=== PATIENT | male | born 1960 | race Caucasian/White ===

== ENCOUNTER 2019-04-29 11:59 | Emergency (ER) | payer BC, OTHER ==
[2019-04-29] MEDS ORDERED: MECLIZINE HCL 12.5 MG TAB ONE (12:28)
[2019-04-29] MEDS ORDERED: DIAZEPAM 10 MG/2 ML INJ SYRINGE ONE (12:28)
[2019-04-29] MEDS ORDERED: NA CHLORIDE 0.9% 1,000 ML ONE (12:29)
[2019-04-29 12:48] LABS: Absolute Lymphocytes (CBC) 0.7 K/uL (0.7-4.9); Basophils % 0.5 % (0-1.3); Hematocrit 42.5 % (39.6-49.0); Lymphocytes % 9.5 % (15.3-44.8); MPV 8.5 fL (7.6-11.3)
[2019-04-29 12:54] LABS: Protime INR 1.01
[2019-04-29 13:09] LABS: ALT/SGPT 38 U/L (12-78); AST/SGOT 22 U/L (15-37); Albumin 4.4 g/dL (3.4-5.0); Alkaline Phosphatase 73 U/L (45-117); BUN Blood Urea Nitrogen 19 mg/dL (7-18); Bicarbonate 24 mmol/L (21-32); Bilirubin Direct 0.2 mg/dL (0-0.2); Bilirubin Total 0.8 mg/dL (0.2-1.0); Glucose Level 219 mg/dL (74-106); Magnesium 1.9 mg/dL (1.8-2.4); NT PRO-BNP 7 pg/mL (<125); Potassium 3.3 mmol/L (3.5-5.1); Protein, Total 7.8 g/dL (6.4-8.2); Sodium Level 136 mmol/L (136-145); Troponin (Emerg Dept Use Only) < 0.02 ng/mL (0.0-0.045)
--- NOTE | 2019-04-29 13:20 | RAD REPORT ---
EXAM DESCRIPTION: Alejandra Single View04/29/2019 1:14 pm CLINICAL HISTORY: Hypertension COMPARISON: 2012 FINDINGS: The lungs appear clear of acute infiltrate. The heart is borderline enlarged IMPRESSION: No acute abnormalities displayed
--- NOTE | 2019-04-29 13:33 | RAD REPORT ---
EXAM DESCRIPTION: CT - Head C Spine Mpr Wo Con - 04/29/2019 12:57 pm CLINICAL HISTORY: Vertigo, dizziness, neck pain COMPARISON: [address] TECHNIQUE: Computed axial tomography of the head and cervical spine was obtained. Sagittal and coronal reconstruction was performed. All CT scans are performed using dose optimization technique as appropriate and may include automated exposure control or mA/KV adjustment according to patient size. FINDINGS: An intracranial bleed is not seen. The ventricles are normal in caliber. An extra-axial fl uid collection is not noted. Fluid is present within the left maxillary sinus. Chronic opacification mastoids. A cervical fracture is not visualized. No dislocation is noted. Postsurgical changes involve the cerv ical spine. IMPRESSION: No acute intracranial abnormality is seen. Acute left maxillary sinusitis. Chronic opacification of the mastoids A cervical fracture is not visualized. If the patient continues to have symptoms to suggest intracra nial /spinal cord/ spinal canal pathology then MRI would be recommended
--- NOTE | 2019-04-29 13:44 | EKG ---
Test Date: 2019-04-29 Test Time: 12:47:44 Tilt Wall Supervisor: VENUS MEASUREMENT RESULTS: Intervals: Rate: 59 DE: 204 QRSD: 104 QT: 420 QTc: 415 [place]: P: 70 DE: 204 QRS: 14 T: 30 INTERPRETIVE STATEMENTS: Sinus bradycardia Otherwise normal ECG Compared to ECG 01/09/2017 14:32:11 Sinus rhythm no longer present Electronically Signed On 04-29-19 13:43:34 CDT by David Nguyen
[2019-04-29 13:59] LABS: Urine Blood NEGATIVE (NEG); Urine Glucose NEGATIVE (NEG); Urine Protein 1+ (NEG)
[2019-04-29] MEDS ORDERED: CEFTRIAXONE/SWI 1gm 1 GM/10 ML SYR ONE (14:57)
--- NOTE | 2019-04-29 15:08 | ER ---
Nurse's Notes [facility] Name: Yfn Reagan Age: 59 yrs Sex: Male : 1960 Arrival Date: 04/29/2019 Time: 12:04 Bed 2 Private MD: Diagnosis: Acute maxillary sinusitis-left;Benign paroxysmal vertigo Presentation: 04/29 12:08 Presenting complaint: Patient states: I have vertigo all the time but right now for the la1 last hour it is more severe, if I move my head even a little bit the room spins bad. Transition of care: patient was not received from another setting of care. Onset of symptoms was April 29, 2019. Risk Assessment: Do you want to hurt yourself or someone else? Patient reports no desire to harm self or others. Initial Sepsis Screen: Does the patient meet any 2 criteria? No. Patient's initial sepsis screen is negative. Does the patient have a suspected source of infection? No. Patient's initial sepsis screen is negative. Care prior to arrival: None. 12:08 Method Of Arrival: Wheelchair la1 12:08 Acuity: SHAHNAZ 3 la1 Historical: - Allergies: 12:09 No Known Allergies; la1 - PMHx: 12:09 Hypertension; la1 - Immunization history:: Adult Immunizations up to date. - Social history:: Smoking status: Patient/guardian denies using tobacco. - Ebola Screening: : No symptoms or risks identified at this time. Screenin:40 Abuse screen: Denies threats or abuse. Denies injuries from another. Nutritional sv screening: No deficits noted. Tuberculosis screening: No symptoms or risk factors identified. Fall Risk None identified. Assessment: 12:52 General: Appears in no apparent distress. well groomed, well developed, well nourished, sg Behavior is cooperative, appropriate for age. General: Appears Behavior is Reports fatigue for. Pain: Denies pain. Neuro: Reports dizziness. Cardiovascular: Capillary refill is brisk in bilateral fingers Patient's skin is warm and dry. Respiratory: Airway is patent Respiratory effort is even, unlabored, Respiratory pattern is regular, symmetrical, Denies cough, shortness of breath labored breathing. GI: Abdomen is round non-distended, Reports tolerance of fluids, tolerance of food. : No signs and/or symptoms were reported regarding the genitourinary system. EENT: No signs and/or symptoms were reported regarding the EENT system. Derm: Skin is intact, is healthy with good turgor, Skin is moist, Skin is pale, Skin temperature is cool. Musculoskeletal: Circulation, motion, and sensation intact. Range of motion: intact in all extremities. 13:25 Reassessment: Patient appears in no apparent distress at this time. Patient and/or sg family updated on plan of care and expected duration. Pain level reassessed. Patient is alert, oriented x 3, equal unlabored respirations, skin warm/dry/pink. reports dizziness has improved but a headache has developed in the left side of back of neck and in the left eye. 13:26 Reassessment: RANDI Christianson notified of pt complaint. sg 15:52 Reassessment: Patient appears in no apparent distress at this time. Deepak MARRUFO at sg bedside updating pt and pt family on POC and discharge orders, pt to be discharged to home. Vital Signs: 12:09 BP 162 / 91; Pulse 62; Resp 16; Temp 97.9; Pulse Ox 98% on R/A; Weight 81.65 kg; Height la1 5 ft. 8 in. (172.72 cm); 13:00 BP 157 / 101; Pulse 67; Resp 16; Pulse Ox 98% on R/A; sg 14:00 BP 162 / 96; Pulse 63; Resp 16 S; Pulse Ox 100% on R/A; sg 15:00 BP 176 / 107; Pulse 62; Resp 17; Pulse Ox 99% on R/A; sg 12:09 Body Mass Index 27.37 (81.65 kg, 172.72 cm) la1 ED Course: 12:04 Patient arrived in ED. cf2 12:09 Triage completed. la1 12:09 Arm band placed on left wrist. la1 12:12 Deepak Christianson NP is PHCP. pm1 12:12 Saman Sampson MD is Attending Physician. pm1 12:35 Inserted saline lock: 20 gauge in right antecubital area, using aseptic technique. sv ,using aseptic technique. done by Niko GREENFEILD Blood collected. 12:39 Patient has correct armband on for positive identification. Bed in low position. Call sv light in reach. Side rails up X2. Adult w/ patient. monitor and storage bin tender on. Pulse ox on. NIBP on. Door closed. Head of bed elevated. 12:51 Niko Tyler, RN is Primary Nurse. sg 13:02 CT Head C Spine In Process Unspecified. EDMS 13:22 XRAY Chest (1 view) In Process Unspecified. EDMS 15:06 Liz Kelly MD is Referral Physician. pm1 Administered Medications: 12:38 Drug: NS 0.9% 1000 ml Route: IV; Rate: 1000 ml; Site: right antecubital; sg 14:40 Follow up: Response: No adverse reaction; IV Status: Completed infusion; IV Intake: sg 990ml 12:38 Drug: Meclizine 50 mg Route: PO; sg 13:30 Follow up: Response: No adverse reaction; Marked relief of symptoms sg 14:40 Drug: Valium 5 mg Route: IVP; Site: right antecubital; sg 15:27 Follow up: Response: No adverse reaction; Marked relief of symptoms sg 15:00 Drug: Rocephin 1 grams Route: IV; Rate: calculated rate; Site: right antecubital; sg 15:20 Follow up: Response: No adverse reaction; IV Status: Completed infusion; IV Intake: 20mlsg Intake: 14:40 IV: 990ml; Total: 990ml. sg 15:20 IV: 20ml; Total: 1010ml. sg Outcome: 15:07 Discharge ordered by . pm1 16:18 Patient left the ED. sg Signatures: Dispatcher [employer] Liz Faria RN RN Niko Tyler RN RN sg Mynor Sinclair RN RN la1 Deepak Christianson, YARON CONCRETE [employer] FABRICATOR pm1 Harish Courtney2
--- NOTE | 2019-04-29 15:08 | EDPHYS ---
Physician Documentation [facility] Name: Yfn Reagan Age: 59 yrs Sex: Male : 1960 Arrival Date: 04/29/2019 Time: 12:04 Bed 2 Private MD: ED Physician Saman Sampson HPI: 04/29 13:16 This 59 yrs old Male presents to ER via Wheelchair with complaints of pm1 Dizziness. 13:16 The patient presents with sense of spinning, vertigo. Onset: The symptoms/episode pm1 began/occurred 1 hour(s) ago. Context: occurred at work, just prior to the episode the patient experienced no apparent symptoms. Modifying factors: The symptoms are alleviated by holding head still, the symptoms are aggravated by movement of head, changing position. Associated signs and symptoms: Pertinent negatives: abdominal pain, chest pain, numbness, palpitations, shortness of breath, tingling. Severity of symptoms: in the emergency department the symptoms are unchanged. Patient's baseline: Neuro: alert and fully oriented, alert but confused, Motor: no deficits, Ambulation: walks without assistance, Speech: normal, The patient has a previous history of vertigo. The patient has experienced similar episodes in the past, multiple times. The patient has experienced similar episodes in the past, and the symptoms today are exactly the same, to previous episodes of vertigo but lasting longer. The patient has not recently seen a physician. Historical: - Allergies: 12:09 No Known Allergies; la1 - PMHx: 12:09 Hypertension; la1 - Immunization history:: Adult Immunizations up to date. - Social history:: Smoking status: Patient/guardian denies using tobacco. - Ebola Screening: : No symptoms or risks identified at this time. ROS: 13:16 Constitutional: Negative for fever, chills, and weight loss, Eyes: Negative for injury, pm1 pain, redness, and discharge, ENT: Negative for injury, pain, and discharge, Neck: Negative for injury, pain, and swelling. 13:16 Cardiovascular: Negative for chest pain, palpitations, and edema. 13:16 Abdomen/GI: Negative for abdominal pain, nausea, vomiting, diarrhea, and constipation, Back: Negative for injury and pain, : Negative for injury, bleeding, discharge, and swelling, MS/Extremity: Negative for injury and deformity, Skin: Negative for injury, rash, and discoloration, Neuro: Negative for headache, weakness, numbness, tingling, and seizure. 13:16 Neck: Positive for pain at rest, of the base of the skull. Exam: 13:16 Constitutional: This is a well developed, well nourished patient who is awake, alert, pm1 and in no acute distress. Head/Face: Normocephalic, atraumatic. ENT: Nares patent. No nasal discharge, no septal abnormalities noted. Tympanic membranes are normal and external auditory canals are clear. Oropharynx with no redness, swelling, or masses, exudates, or evidence of obstruction, uvula midline. Mucous membranes moist. Neck: Trachea midline, no thyromegaly or masses palpated, and no cervical lymphadenopathy. Supple, full range of motion without nuchal rigidity, or vertebral point tenderness. No Meningismus. Chest/axilla: Normal chest wall appearance and motion. Nontender with no deformity. No lesions are appreciated. Cardiovascular: Regular rate and rhythm with a normal S1 and S2. No gallops, murmurs, or rubs. Normal PMI, no JVD. No pulse deficits. Respiratory: Lungs have equal breath sounds bilaterally, clear to auscultation and percussion. No rales, rhonchi or wheezes noted. No increased work of breathing, no retractions or nasal flaring. Abdomen/GI: Soft, non-tender, with normal bowel sounds. No distension or tympany. No guarding or rebound. No evidence of tenderness throughout. Back: No spinal tenderness. No costovertebral tenderness. Full range of motion. 13:16 Skin: Warm, dry with normal turgor. Normal color with no rashes, no lesions, and no evidence of cellulitis. MS/ Extremity: Pulses equal, no cyanosis. Neurovascular intact. Full, normal range of motion. 13:16 Eyes: Extraocular movements: intact throughout, Visual busch: Vestibular nystagmus. 13:16 Neuro: Orientation: is normal, Mentation: is normal, Cerebellar function: normal finger to nose testing, Motor: is normal, moves all fours, Sensation: is normal, no obvious gross deficits, Deep tendon reflexes are seizure activity, is not displayed by the patient. 13:16 Psych: Behavior/mood is pleasant, cooperative, Affect is calm, Oriented to person, place, time. Vital Signs: 12:09 BP 162 / 91; Pulse 62; Resp 16; Temp 97.9; Pulse Ox 98% on R/A; Weight 81.65 kg; Height la1 5 ft. 8 in. (172.72 cm); 13:00 BP 157 / 101; Pulse 67; Resp 16; Pulse Ox 98% on R/A; sg 14:00 BP 162 / 96; Pulse 63; Resp 16 S; Pulse Ox 100% on R/A; sg 15:00 BP 176 / 107; Pulse 62; Resp 17; Pulse Ox 99% on R/A; sg 12:09 Body Mass Index 27.37 (81.65 kg, 172.72 cm) la1 MDM: 12:12 Patient medically screened. pm1 15:02 Data reviewed: vital signs. Data interpreted: Pulse oximetry: on room air is 100 %. pm1 Interpretation: normal. 15:02 Counseling: I had a detailed discussion with the patient and/or guardian regarding: the pm1 historical points, exam findings, and any diagnostic results supporting the discharge/admit diagnosis, lab results, radiology results, the need for outpatient follow up, an ENT specialist, a neurologist, to return to the emergency department if symptoms worsen or persist or if there are any questions or concerns that arise at home. 04/29 12:24 Order name: Basic Metabolic Panel; Complete Time: 14:12 pm1 04/29 12:24 Order name: CBC with Diff; Complete Time: 13:07 pm1 04/29 12:24 Order name: LFT's; Complete Time: 14:12 pm1 04/29 12:24 Order name: Magnesium; Complete Time: 14:12 pm1 04/29 12:24 Order name: NT PRO-BNP; Complete Time: 14:12 pm1 04/29 12:24 Order name: PT-INR; Complete Time: 13:07 pm1 04/29 12:24 Order name: Troponin (emerg Dept Use Only); Complete Time: 14:12 pm1 04/29 12:24 Order name: XRAY Chest (1 view); Complete Time: 14:12 pm1 04/29 12:24 Order name: CT Head C Spine; Complete Time: 15:05 pm1 04/29 12:26 Order name: Urine Dipstick--Ancillary (enter results); Complete Time: 14:12 dh3 04/29 12:24 Order name: EKG; Complete Time: 12:27 pm1 04/29 12:24 Order name: Cardiac monitoring; Complete Time: 12:41 pm1 04/29 12:24 Order name: EKG - Nurse/Tech; Complete Time: 15:29 pm1 04/29 12:24 Order name: IV Saline Lock; Complete Time: 12:41 pm1 04/29 12:24 Order name: Labs collected and sent; Complete Time: 12:42 pm1 04/29 12:24 Order name: O2 Per Protocol; Complete Time: 12:42 pm1 04/29 12:24 Order name: O2 Sat Monitoring; Complete Time: 12:42 pm1 Administered Medications: 12:38 Drug: NS 0.9% 1000 ml Route: IV; Rate: 1000 ml; Site: right antecubital; sg 14:40 Follow up: Response: No adverse reaction; IV Status: Completed infusion; IV Intake: sg 990ml 12:38 Drug: Meclizine 50 mg Route: PO; sg 13:30 Follow up: Response: No adverse reaction; Marked relief of symptoms sg 14:40 Drug: Valium 5 mg Route: IVP; Site: right antecubital; sg 15:27 Follow up: Response: No adverse reaction; Marked relief of symptoms sg 15:00 Drug: Rocephin 1 grams Route: IV; Rate: calculated rate; Site: right antecubital; sg 15:20 Follow up: Response: No adverse reaction; IV Status: Completed infusion; IV Intake: 20mlsg Disposition: 04/30 09:09 Co-signature as Attending Physician, Saman Sampson MD., cha Disposition: 04/29/19 15:07 Discharged to Home. Impression: Acute maxillary sinusitis - left, Benign paroxysmal vertigo. - Condition is Stable. - Discharge Instructions: Benign Positional Vertigo, Sinusitis, Adult, Vertigo. - Prescriptions for Valium 5 mg Oral Tablet - take 1 tablet by ORAL route every 8 hours As needed; 20 tablet. Meclizine 25 mg Oral Tablet - take 1 tablet by ORAL route every 8 hours As needed; 30 tablet. Zofran 4 mg Oral Tablet - take 1 tablet by ORAL route every 12 hours As needed; 20 tablet. - Work release form, Medication Reconciliation Form, Thank You Letter, Antibiotic Education, Prescription Opioid Use form. - Follow up: Emergency Department; When: As needed; Reason: Worsening of condition. Follow up: Private Physician; When: 2 - 3 days; Reason: Recheck today's complaints, Continuance of care, Re-evaluation by your physician. Follow up: Liz Kelly MD; When: 2 - 3 days; Reason: Recheck today's complaints, Continuance of care, Re-evaluation by your physician. - Problem is new. - Symptoms have improved. Signatures: Dispatcher [employer] EDMS Niko Tyler RN RN sg Saman Sampson MD MD cha Attema, Lee RN RN la1 Deepak Christianson, ECONOMICS CONSULTANT ECONOMICS CONSULTANT pm1 Corrections: (The following items were deleted from the chart) 04/29 16:18 15:07 04/29/2019 15:07 Discharged to Home. Impression: Acute maxillary sinusitis - sg left; Benign paroxysmal vertigo. Condition is Stable. Forms are Medication Reconciliation Form, Thank You Letter, Antibiotic Education, Prescription Opioid Use. Follow up: Emergency Department; When: As needed; Reason: Worsening of condition. Follow up: Private Physician; When: 2 - 3 days; Reason: Recheck today's complaints, Continuance of care, Re-evaluation by your physician. Follow up: Liz Kelly; When: 2 - 3 days; Reason: Recheck today's complaints, Continuance of care, Re-evaluation by your physician. Problem is new. Symptoms have improved. pm1
== END 2019-04-29 16:18 | disposition home or self-care (01) ==
LOC: ER 11:59
DX: H81.10 Benign paroxysmal vertigo, unspecified ear (principal); J01.00 Acute maxillary sinusitis, unspecified
CPT/HCPCS: 96365; 96361; 93005; 85025; 80048; 36415; 83735; 85610; 80076; 81003; 84484; 83880; 70450; 72125; 71045; 96375; 99284; J3360; J0696; J7030

== ENCOUNTER 2024-09-14 07:04 | Emergency (ER) | payer OTHER ==
[2024-09-14] MEDS ORDERED: cloNIDine HCL 0.1 MG TAB ONE (07:37)
--- NOTE | 2024-09-14 08:02 | RAD REPORT ---
EXAMINATION: ONE VIEW CHEST XR CLINICAL INDICATION: Male, 64 years old.,HTN TECHNIQUE: Frontal chest projection is submitted. Examination is limited by patient positioning and t echnique. COMPARISON: 04/29/2019 FINDINGS: Medial right basilar airspace opacity, progressive in appearance since the prior exam. No pneumothor ax or sizable effusion. The heart is normal in size. Mediastinal contours are unremarkable. IMPRESSION: Medial right basilar airspace opacity, could reflect atelectasis or early pneumonia.
[2024-09-14 08:05] LABS: Absolute Eosinophils 0.1 K/uL (0-0.5); Absolute Lymphocytes (CBC) 0.8 K/uL (0.7-4.9); Absolute Monocytes 0.7 K/uL (0.1-1.3); Absolute Neutrophil 6.9 K/uL (1.8-8.0); Basophils % 0.4 % (0-1.3); Eosinophils % 1.4 % (0-4.4); Hematocrit 49.9 % (39.6-49.0); Hemoglobin 17.3 g/dL (13.6-17.9); MCH 32.1 pg (27.0-35.0); MCHC 34.6 g/dL (32.0-36.0); MCV 92.8 fL (80-100); MPV 7.8 fL (7.6-11.3); Monocytes % 8.7 % (3.3-12.3); Neutrophils % 80.5 % (41.7-73.7); Platelets 242 thou/uL (152-406); RBC Red Blood Cell Count 5.37 M/uL (4.33-5.43); Red Cell Distribution Width 13.4 % (12.1-15.2)
[2024-09-14 08:14] LABS: PT Prothrombin Time 10.3 SECONDS (9.4-12.5); Protime INR 0.92
[2024-09-14 08:26] LABS: Troponin High Sensitivity 10.8 pg/mL (<58.9)
--- NOTE | 2024-09-14 09:42 | RAD REPORT ---
EXAMINATION: MRI BRAIN WITHOUT CONTRAST CLINICAL INDICATION: Male, 64 years old. DIZZINESS Bed Name: 5 TECHNIQUE: Multiplanar multisequence MR images of the brain were obtained without intravenous contras t. Unless otherwise specified, incidental findings do not require dedicated imaging follow-up. COMPARISON: Head CT 04/29/2019 FINDINGS: INTRACRANIAL: Midline structures are unremarkable. Diffusion-weighted images show no acute or early subacute infarction. Left inferior cerebellar hemisphere encephalomalacia with adjacent gliosis suggesting sequelae of rem ote ischemia. Otherwise mild scattered periventricular and deep white matter foci of T2/FLAIR hyperintensity, nonspecific, but suggestive of chronic small vessel ischemic changes. The ventricles are normal in size and morphology. No augmented susceptibility signal abnormality. The re is no mass effect or midline shift. No abnormal extraaxial fluid collection. VASCULATURE: Normal signal voids in the larger intracranial arteries and dural venous sinuses. SINUSES: Patchy opacification of the paranasal sinuses with bilateral maxillary sinus air-fluid level s. Patchy opacification of the mastoid air cells as well. BONE: The marrow signal pattern is within normal limits. IMPRESSION: No significant intracranial abnormalities. Chronic findings including sequelae of remote ischemia involving left inferior cerebellar hemisphere. Mild burden of other nonspecific periventricular deep white matter T2 hyperintensities, suggestive of chronic small vessel ischemic changes.
--- NOTE | 2024-09-14 09:50 | ER ---
Nurse's Notes [facility] Name: Yfn Reagan Age: 64 yrs Sex: Male : 1960 Arrival Date: 09/14/2024 Time: 07:04 Bed 5 Private MD: Diagnosis: Essential (primary) hypertension;Pneumonia, unspecified organism;Acute sinusitis, unspecified Presentation: 09/14 07:10 Chief complaint: Patient states: feels very dizzy and light headed and BP has been iw running high, since Thursday. Coronavirus screen: At this time, the client does not indicate any symptoms associated with coronavirus-19. Ebola Screen: No symptoms or risks identified at this time. Initial Sepsis Screen: Does the patient meet any 2 criteria? No. Patient's initial sepsis screen is negative. Does the patient have a suspected source of infection? No. Patient's initial sepsis screen is negative. Risk Assessment: Do you want to hurt yourself or someone else? Patient reports no desire to harm self or others. 07:10 Method Of Arrival: Ambulatory iw 07:10 Acuity: SHAHNAZ 3 iw 07:12 Onset of symptoms was September 11, 2024. iw Historical: - Allergies: 07:13 No Known Allergies; iw - Home Meds: 07:12 olmesartan 40 mg oral tablet daily [Active]; amlodipine 5 mg tablet daily [Active]; iw - PMHx: 07:12 Hypertension; iw 07:13 vertigo; iw - PSHx: 07:13 neck; right arm; iw - Immunization history:: Adult Immunizations unknown. - Infectious Disease History:: Denies. - Social history:: Smoking status: Patient/guardian denies using tobacco. - Family history:: not pertinent. - Hospitalizations: : No recent hospitalization is reported. Screenin:44 [facility] ED Fall Risk Assessment (Adult) History of falling in the last 3 months, ko1 including since admission No falls in past 3 months (0 pts) Confusion or Disorientation No (0 pts) Intoxicated or Sedated No (0 pts) Impaired Gait No (0 pts) Mobility Assist Device Used No (0 pt) Altered Elimination No (0 pt) Score/Fall Risk Level 0 - 2 = Low Risk Oriented to surroundings, Maintained a safe environment, Educated pt \T\ family on fall prevention, incl call for assistance when getting out of bed, Assessed \T\ reinforced patient's understanding of fall precautions, Hourly rounding (assess needs \T\ fall precautionary measures) done. Abuse screen: Denies threats or abuse. Denies injuries from another. Nutritional screening: No deficits noted. Tuberculosis screening: No symptoms or risk factors identified. Assessment: 07:44 General: Appears in no apparent distress. Behavior is cooperative, appropriate for age, ko1 anxious. Pain: Complains of pain in chest. Neuro: Reports dizziness. Cardiovascular: Reports lightheadedness, chest pressure when taking a deep breath. Respiratory: No deficits noted. GI: No deficits noted. No signs and/or symptoms were reported involving the gastrointestinal system. : No deficits noted. No signs and/or symptoms were reported regarding the genitourinary system. EENT: No deficits noted. No signs and/or symptoms were reported regarding the EENT system. Derm: No deficits noted. No signs and/or symptoms reported regarding the dermatologic system. Musculoskeletal: No deficits noted. No signs and/or symptoms reported regarding the musculoskeletal system. 09:01 Reassessment: Patient and/or family updated on plan of care and expected duration. Pain rs5 level reassessed. Patient is alert, oriented x 3, equal unlabored respirations, skin warm/dry/pink. 09:35 Reassessment: Patient and/or family updated on plan of care and expected duration. Pain rs5 level reassessed. Patient is alert, oriented x 3, equal unlabored respirations, skin warm/dry/pink. Vital Signs: 07:12 BP 161 / 113; Pulse 81; Resp 19; Temp 97.6; Pulse Ox 100% ; Pain 0/10; iw 07:57 BP 130 / 103; Pulse 84; Resp 16; Pulse Ox 97% on R/A; ko1 08:14 BP 150 / 107; Pulse 95; Resp 15; Pulse Ox 98% ; ko1 09:30 BP 105 / 84; Pulse 68; Resp 15; Pulse Ox 99% ; ko1 09:50 BP 105 / 84; rn 09:55 BP 118 / 95; Pulse 78; Resp 14; Pulse Ox 97% on R/A; ko1 07:12 Pain Scale: Adult iw ED Course: 07:07 Patient arrived in ED. ra3 07:07 Cole Murillo MD is Attending Physician. rn 07:12 Triage completed. iw 07:14 Arm band placed on. iw 07:31 Janki Espinoza, RN is Primary Nurse. ko1 07:44 Patient has correct armband on for positive identification. Bed in low position. Call ko1 light in reach. Side rails up X 1. Provided Education on: labs, meds. Client placed on continuous cardiac and pulse oximetry monitoring. NIBP monitoring applied. bus monitor on. Door closed. Noise minimized. Pillow given. Assisted to bathroom. 07:44 No provider procedures requiring assistance completed. ko1 07:46 XRAY Chest (1 view) In Process Unspecified. EDMS 07:54 Basic Metabolic Panel Sent. ko1 07:54 CBC with Diff Sent. ko1 07:54 NT PRO-BNP Sent. ko1 07:54 PT-INR Sent. ko1 07:54 Troponin HS Sent. ko1 07:54 EKG done, by ED staff, reviewed by Cole Murillo MD. ko1 08:00 Inserted saline lock: 20 gauge in right antecubital area, using aseptic technique. kb4 Blood collected. Flushed with 10 mL NS. 08:00 Initial lab(s) drawn, by me, sent to lab. kb4 09:17 Brain Wo Cont MRI In Process Unspecified. EDMS 09:30 IV discontinued, intact, bleeding controlled, No redness/swelling at site. Pressure ko1 dressing applied. Administered Medications: 07:40 Drug: cloNIDine PO 0.2 mg PO once Route: PO; ko1 08:10 Follow up: Response: No adverse reaction ko1 10:04 Drug: AZITHromycin PO 500 mg PO once Route: PO; rs5 Medication: 07:44 VIS not applicable for this client. ko1 Outcome: 09:50 Discharge ordered by . rn 10:04 Discharged to home ambulatory, rs5 10:04 Condition: stable 10:04 Discharge instructions given to patient, family, Instructed on discharge instructions, follow up and referral plans. medication usage, Demonstrated understanding of instructions, follow-up care, medications, Prescriptions given X 1, 10:05 Patient left the ED. rs5 Signatures: Dispatcher [employer] EDMS Annie Lopez RN RN iw Cole Murillo MD MD rn Oliver, Kathy, RN RN ko1 Zackery Quan RN RN rs5 Valery Collins ra3 Kylie Perez kb4
--- NOTE | 2024-09-14 09:51 | EDPHYS ---
Physician Documentation [facility] Name: Yfn Reagan Age: 64 yrs Sex: Male : 1960 Arrival Date: 09/14/2024 Time: 07:04 Bed 5 Private MD: ED Physician Cole Murillo HPI: 09/14 07:57 This 64 yrs old Unknown Male presents to ER via Ambulatory with complaints of High rn Blood Pressure. 07:57 The patient has elevated blood pressure and discovered this at home. Onset: The rn symptoms/episode began/occurred 2 day(s) ago. Modifying factors:. Associated signs and symptoms: Pertinent positives: dizziness, Pertinent negatives: headache, vomiting, weakness. Severity of symptoms: At its worst the blood pressure was moderate, in the emergency department the blood pressure is unchanged. The patient has experienced similar episodes in the past. Patient reports high blood pressure and dizziness since Thursday. Reports pretty constant. Not been measuring his blood pressure until recently when noticed return of dizziness. Patient has vertigo in the past and this feels similar. No headache or neck stiffness. No fever or recent illness. No change in medication recently. Patient has appointment with PCP later on today for blood pressure management but came in because his blood pressure was higher this morning.. Historical: - Allergies: 07:13 No Known Allergies; iw - Home Meds: 07:12 olmesartan 40 mg oral tablet daily [Active]; amlodipine 5 mg tablet daily [Active]; iw - PMHx: 07:12 Hypertension; iw 07:13 vertigo; iw - PSHx: 07:13 neck; right arm; iw - Immunization history:: Adult Immunizations unknown. - Infectious Disease History:: Denies. - Social history:: Smoking status: Patient/guardian denies using tobacco. - Family history:: not pertinent. - Hospitalizations: : No recent hospitalization is reported. ROS: 07:57 Constitutional: Negative for fever, chills, and weight loss, Eyes: Negative for injury, rn pain, redness, and discharge, Neck: Negative for injury, pain, and swelling, Cardiovascular: Negative for palpitations, and edema, Respiratory: Negative for shortness of breath, cough, wheezing, and pleuritic chest pain, Abdomen/GI: Negative for abdominal pain, nausea, vomiting, diarrhea, and constipation, Back: Negative for injury and pain, MS/Extremity: Negative for injury and deformity, Neuro: Negative for headache, weakness, numbness, tingling, and seizure, Exam: 07:25 ECG was reviewed by the Attending Physician. rn 07:57 Constitutional: This is a well developed, well nourished patient who is awake, alert, rn and in no acute distress. Head/Face: Normocephalic, atraumatic. Neck: No Meningismus. Cardiovascular: Irregular rhythm. No pulse deficits. Respiratory: No increased work of breathing, no retractions or nasal flaring. Neuro: Awake and alert, GCS 15, oriented to person, place, time, and situation. Cranial nerves II-XII grossly intact. Motor strength 5/5 in all extremities. Sensory grossly intact. Cerebellar exam normal. Vital Signs: 07:12 BP 161 / 113; Pulse 81; Resp 19; Temp 97.6; Pulse Ox 100% ; Pain 0/10; iw 07:57 BP 130 / 103; Pulse 84; Resp 16; Pulse Ox 97% on R/A; ko1 08:14 BP 150 / 107; Pulse 95; Resp 15; Pulse Ox 98% ; ko1 09:30 BP 105 / 84; Pulse 68; Resp 15; Pulse Ox 99% ; ko1 09:50 BP 105 / 84; rn 09:55 BP 118 / 95; Pulse 78; Resp 14; Pulse Ox 97% on R/A; ko1 07:12 Pain Scale: Adult iw MDM: 07:07 Medical Screening Exam initiated rn 09:49 Differential diagnosis: hypertensive crisis, Malignant HTN, CVA, intracerebral rn hemorrhage. Data reviewed: vital signs, nurses notes, lab test result(s), radiologic studies, MRI, plain films, and as a result, I will discharge patient. Counseling: I had a detailed discussion with the patient and/or guardian regarding the historical points, exam findings, and any diagnostic results supporting the discharge/admit diagnosis, lab results, radiology results, the need for outpatient follow up, to return to the emergency department if symptoms worsen or persist or if there are any questions or concerns that arise at home. Response to treatment: the patient's symptoms have mildly improved after treatment, and as a result, I will discharge patient. Special discussion: I discussed with the patient/guardian in detail that at this point there is no indication for admission to the hospital. It is understood, however, that if the symptoms persist or worsen the patient needs to return immediately for re-evaluation. Based on the history and exam findings, there is no indication for further emergent testing or inpatient evaluation. I discussed with the patient/guardian the need to see the primary care provider for further evaluation of the symptoms. ED course: No acute findings and workup including MRI brain. Chest x-ray shows possible infiltrate and patient states susceptible to walking pneumonia. Does report cough and sinus problems. Will discharge home with antibiotics for this as could be making his vertigo worse. Has follow-up appointment with PCP today for blood pressure management. Current blood pressure is 105/84.. 09/14 07:24 Order name: Basic Metabolic Panel; Complete Time: 09:19 rn 09/14 07:24 Order name: CBC with Diff; Complete Time: 09:19 rn 09/14 07:24 Order name: NT PRO-BNP; Complete Time: 09:19 rn 09/14 07:24 Order name: PT-INR; Complete Time: 09:19 rn 09/14 07:24 Order name: Troponin HS; Complete Time: 09:19 rn 09/14 07:24 Order name: XRAY Chest (1 view); Complete Time: 09:19 rn 09/14 07:34 Order name: Brain Wo Cont MRI; Complete Time: 09:44 rn 09/14 07:24 Order name: Cardiac monitoring; Complete Time: 07:28 rn 09/14 07:24 Order name: EKG - Nurse/Tech; Complete Time: 07:54 rn 09/14 07:24 Order name: IV Saline Lock; Complete Time: 07:54 rn 09/14 07:24 Order name: Labs collected and sent; Complete Time: 07:54 rn 09/14 07:24 Order name: O2 Per Protocol; Complete Time: 07:27 rn 09/14 07:24 Order name: O2 Sat Monitoring; Complete Time: 07:28 rn EC:30 Rate is 98 beats/min. Rhythm is irregularly irregular. QRS [place] is Normal. QRS interval rn is normal. QT interval is normal. No Q waves. T waves are Normal. No ST changes noted. Clinical impression: Atrial Fibrillation. Interpreted by me. Reviewed by me. Administered Medications: 07:40 Drug: cloNIDine PO 0.2 mg PO once Route: PO; ko1 08:10 Follow up: Response: No adverse reaction ko1 10:04 Drug: AZITHromycin PO 500 mg PO once Route: PO; rs5 Disposition Summary: 09/14/24 09:50 Discharge Ordered Notes: Location: Home rn Problem: an ongoing problem rn Symptoms: have improved rn Condition: Stable rn Diagnosis - Essential (primary) hypertension rn - Pneumonia, unspecified organism rn - Acute sinusitis, unspecified rn Followup: rn - With: Private Physician - When: As needed - Reason: Recheck today's complaints, Re-evaluation by your physician Discharge Instructions: - Discharge Summary Sheet rn - Hypertension, Adult rn - Community-Acquired Pneumonia, Adult rn - Sinusitis, Adult rn - How to Take Your Blood Pressure, [id number] rn - Managing Your Hypertension rn Forms: - Medication Reconciliation Form rn - Antibiotic associate attorney - Prescription Opioid Use rn - Patient Portal Instructions rn - Leadership Thank You Letter rn Prescriptions: - Zithromax Z-Jin 250 mg Oral Tablet - take 1 tablet ORAL route as directed for 5 days Day 1 - take two (2) tablets rn one time. Day 2, 3, 4 , 5 take one (1) tablet once daily.; 6 tablet; Refills: 0, Product Selection Permitted Signatures: Dispatcher [employer] EDPR Annie Lopez RN RN Cole Morgan MD MD rn Oliver, Kathy, RN RN ko1 Zackery Quan RN RN rs5 Corrections: (The following items were deleted from the chart) 07:25 07:25 BASIC METABOLIC PANEL+C.LAB.BRZ ordered. [facility] 07:25 07:25 CBC+H.LAB.BRZ ordered. [facility] 07:25 07:25 PROBNP+C.LAB.BRZ ordered. [facility] EDPR 07:25 07:25 PROTIME (+INR)+COAG.LAB.BRZ ordered. [facility] EDPR 07:25 07:25 Troponin High Sensitivity+C.LAB.BRZ ordered. [facility] 07:25 07:25 Chest Single View+RAD.RAD.BRZ ordered. [facility] 08:31 07:25 Rate is 57 beats/min. Rhythm is regular. QRS [place] is Normal. [place] interval is rn normal. QRS interval is normal. QT interval is normal. No Q waves. T waves are Normal. No ST changes noted. Clinical impression: Sinus bradycardia. Interpreted by me. Reviewed by me. rn 08:31 07:57 Constitutional: This is a well developed, well nourished patient who is awake, rn alert, and in no acute distress. Head/Face: Normocephalic, atraumatic. Neck: No Meningismus. Cardiovascular: Regular rate and rhythm. No pulse deficits. Respiratory: No increased work of breathing, no retractions or nasal flaring. Neuro: Awake and alert, GCS 15, oriented to person, place, time, and situation. Cranial nerves II-XII grossly intact. Motor strength 5/5 in all extremities. Sensory grossly intact. Cerebellar exam normal. rn
[2024-09-14] MEDS ORDERED: AZITHROMYCIN 250 MG TAB ONE (09:55)
[2024-09-14 10:10] VITALS: TEMP 97.6
[2024-09-14 10:17] VITALS: BP 118/95; O2SAT 97
--- NOTE | 2024-09-19 11:02 | EKG ---
Test Date: 2024-09-14 Test Time: 07:46:45 Sales Host: AKANKSHA MEASUREMENT RESULTS: Intervals: Rate: 98 [place]: QRSD: 80 QT: 324 QTc: 413 [place]: P: [place]: QRS: 5 T: 36 INTERPRETIVE STATEMENTS: Atrial fibrillation Anterior infarct, age undetermined Abnormal ECG Compared to ECG 04/29/2019 12:47:44 Myocardial infarct finding now present Sinus bradycardia no longer present Electronically Signed On 09-19-24 10:54:17 [employer] by Josh Diggs
== END 2024-09-14 10:05 | disposition home or self-care (01) ==
LOC: ER 07:04
DX: I10 Essential (primary) hypertension (principal); J18.9 Pneumonia, unspecified organism; J01.90 Acute sinusitis, unspecified
CPT/HCPCS: 36415; 70551; 71045; 80048; 83880; 84484; 85025; 85610; 93005; 99285